=== PATIENT | male | born 1940 | race Caucasian/White ===

== ENCOUNTER 2020-10-20 14:37 | Outpatient (CLI) | payer MEDICARE | END 2020-10-20 14:38 | disposition home or self-care (01) | LOC: CSHULT 14:37 | PROVIDERS: ATTEND Family Medicine | DX: M79.89 Other specified soft tissue disorders (principal); Z95.828 Presence of other vascular implants and grafts; I82.502 Chronic embolism and thrombosis of unspecified deep veins of left lower extremity ==